=== PATIENT | female | born 1940 | race Caucasian/White ===

== ENCOUNTER → 2017-04-01 | Outpatient (CLI) | payer MEDICARE, OTHER | LOC: LAB 13:50 | DX: J45.991 Cough variant asthma (principal) | CPT/HCPCS: 36415; 82785; 82787 ==

== ENCOUNTER → 2021-02-25 | Outpatient (CLI) | payer MEDICARE, OTHER | LOC: MAMO 08:47 | DX: Z53.9 Procedure and treatment not carried out, unspecified reason (principal) ==

== ENCOUNTER → 2021-03-20 | Outpatient (CLI) | payer MEDICARE, OTHER | LOC: MAMO 07:49 | DX: Z12.31 Encounter for screening mammogram for malignant neoplasm of breast (principal) | CPT/HCPCS: 77063; 77067 ==

== ENCOUNTER → 2021-03-25 | Outpatient (CLI) | payer MEDICARE, OTHER ==
[2021-03-25 09:26] LABS: HEMOGLOBIN 13.4 gm/dl (12.3-15.3); RED BLOOD COUNT 4.5 M/UL (4.00-5.10); WHITE BLOOD COUNT 3.8 K/UL (4.5-11.0)
[2021-03-25 09:49] LABS: BUN/CREATININE RATIO 12 (0-10)
[2021-03-27 11:14] LABS: CHOLESTEROL, TOTAL 172 mg/dL (100-199); HDL SIZE 9.5 nm (>=9.2); HDL-C 68 mg/dL (>39); HDL-P (TOTAL) 37.3 umol/L (>=30.5); LARGE HDL-P 9.6 umol/L (>=4.8); LARGE VLDL-P 0.9 nmol/L (<=2.7); LDL SIZE 21.2 nm (>20.5); LDL SIZE 21.2 nm (>=20.8); LDL-C 93 mg/dL (0-99); LDL-P 1034 nmol/L (<1000); LP-IR SCORE <25 (<=45); SMALL LDL-P 305 nmol/L (<=527); TRIGLYCERIDES 54 mg/dL (0-149); VLDL SIZE 38.5 nm (<=46.6)
== END ==
LOC: LAB 08:48
PROVIDERS: Emergency Medicine
DX: I12.9 Hypertensive chronic kidney disease with stage 1 through stage 4 chronic kidney disease, or unspecified chronic kidney disease (principal); N18.30 Chronic kidney disease, stage 3 unspecified; E78.2 Mixed hyperlipidemia; R53.83 Other fatigue; Z88.1 Allergy status to other antibiotic agents; Z88.5 Allergy status to narcotic agent; Z88.8 Allergy status to other drugs, medicaments and biological substances
CPT/HCPCS: 36415; 80053; 80061; 83704; 84550; 85025

== ENCOUNTER → 2021-10-31 | Outpatient (CLI) | payer MEDICARE, OTHER | LOC: LAB 07:41 | PROVIDERS: Emergency Medicine | DX: I10 Essential (primary) hypertension (principal); J30.89 Other allergic rhinitis | CPT/HCPCS: 36415; 80048 ==

== ENCOUNTER → 2022-01-12 | Outpatient (CLI) | payer MEDICARE, OTHER | LOC: KOH-I 12:24 | DX: J20.9 Acute bronchitis, unspecified (principal) | CPT/HCPCS: 71046 ==

== ENCOUNTER → 2022-03-03 | Outpatient (CLI) | payer MEDICARE, OTHER | LOC: KOH-I 09:49 | DX: J41.0 Simple chronic bronchitis (principal); J84.89 Other specified interstitial pulmonary diseases; J43.9 Emphysema, unspecified | CPT/HCPCS: 71250 ==

== ENCOUNTER → 2022-04-01 | Outpatient (CLI) | payer MEDICARE, OTHER | LOC: HEART 5 10:33 | DX: J45.991 Cough variant asthma (principal) | CPT/HCPCS: 94010; 95012 ==

== ENCOUNTER → 2022-04-10 | Outpatient (CLI) | payer MEDICARE, OTHER ==
[2022-04-10 07:59] LABS: HEMOGLOBIN 13.6 gm/dl (12.3-15.3); RED BLOOD COUNT 4.36 M/UL (4.00-5.10); WHITE BLOOD COUNT 4.2 K/UL (4.5-11.0)
[2022-04-10 08:19] LABS: BUN/CREATININE RATIO 8 (0-10)
[2022-04-11 19:10] LABS: CHOLESTEROL, TOTAL 179 mg/dL (100-199); HDL SIZE 10.1 nm (>=9.2); HDL-C 86 mg/dL (>39); HDL-P (TOTAL) 39.4 umol/L (>=30.5); LARGE HDL-P 12.4 umol/L (>=4.8); LARGE VLDL-P 0.9 nmol/L (<=2.7); LDL SIZE 21.3 nm (>20.5); LDL SIZE 21.3 nm (>=20.8); LDL-C 84 mg/dL (0-99); LDL-P 733 nmol/L (<1000); LP-IR SCORE <25 (<=45); SMALL LDL-P <90 nmol/L (<=527); TRIGLYCERIDES 45 mg/dL (0-149); VLDL SIZE 43.3 nm (<=46.6)
== END ==
LOC: LAB 07:41
PROVIDERS: Nurse Practitioner
DX: Z12.11 Encounter for screening for malignant neoplasm of colon (principal); I10 Essential (primary) hypertension; E78.2 Mixed hyperlipidemia
CPT/HCPCS: 36415; 80053; 80061; 83704; 84443; 85025

== ENCOUNTER → 2022-07-22 | Outpatient (CLI) | payer MEDICARE, OTHER ==
[2022-07-22 10:18] LABS: HEMOGLOBIN 14.1 gm/dl (12.3-15.3); RED BLOOD COUNT 4.55 M/UL (4.00-5.10); WHITE BLOOD COUNT 4.3 K/UL (4.5-11.0)
[2022-07-22 10:50] LABS: BUN/CREATININE RATIO 14 (0-10)
[2022-07-23 12:14] LABS: RHEUMATOID ARTHRITIS FACTOR <10.0 IU/mL (<14.0)
== END ==
LOC: LAB 09:00
PROVIDERS: Emergency Medicine
DX: R53.83 Other fatigue (principal); M15.8 Other polyosteoarthritis; I10 Essential (primary) hypertension; J30.9 Allergic rhinitis, unspecified; E55.9 Vitamin D deficiency, unspecified
CPT/HCPCS: 36415; 80053; 82306; 82607; 84443; 85025; 86038; 86140; 86431

== ENCOUNTER → 2022-08-10 | Outpatient (CLI) | payer MEDICARE, OTHER | LOC: RAD 16:29 | DX: M54.50 Low back pain, unspecified (principal); M47.816 Spondylosis without myelopathy or radiculopathy, lumbar region | CPT/HCPCS: 72110 ==